=== PATIENT | female | born 1995 ===

== ENCOUNTER 2022-10-28 17:15 | Emergency (ER) | payer BC ==
[2022-10-28] MEDS ORDERED: Ondansetron 4 MG/2 ML SDV IVPUSH ONE (18:22)
[2022-10-28] MEDS ORDERED: Sodium Chloride 0.9% 1,000 ML IV ONE (18:22)
[2022-10-28] MEDS ORDERED: Ketorolac 30 MG/ML SDV IVPUSH ONE (18:23)
[2022-10-28 19:21] LABS: CARBON DIOXIDE,CO2 23.7 mmol/L (21.0-32.0); POTASSIUM,K 3.8 mmol/L (3.5-5.1)
[2022-10-28] MEDS ORDERED: Phenazopyridine 200 MG Tab PO ONE (20:05)
[2022-10-28] MEDS ORDERED: Cephalexin 500 MG Cap PO ONE (20:05)
== END 2022-10-28 20:28 | disposition home or self-care (01) ==
LOC: MW.ED 17:15
DX: N39.0 Urinary tract infection, site not specified (principal)
CPT/HCPCS: 36415; 80053; 81001; 81025; 85025; 87086; 99284; A9270